=== PATIENT | male | born 1945 | race Caucasian/White ===

== ENCOUNTER 2017-07-25 18:41 | Emergency (ER) | payer OTHER ==
[~2017-07-25] VITALS: Ht 170.2 cm; Wt 60.9 kg
[~2017-07-25 18:41] MED LIST: ASPIRIN E.C.81 M1 PO; LOPRESSOR25 MG PO; LORAZEPAM0.5 MG PO; METOPROLOL SUCC25 MG PO; MOTRIN600 MG PO; OxyCODONE; PRAVACHOL40 MG PO; Senokot,Sennagen PO; Zocor PO; [UNRECOGNIZED DRUG - REMARK]
[2017-07-25] MEDS ORDERED: NORCO 5/3251 TABLET PO (20:51)
[2017-07-25 21:13] VITALS: BP 126/55
== END 2017-07-25 21:13 | disposition home or self-care (01) ==
LOC: EME 18:41 → RME 18:41
DX: S80.01XA Contusion of right knee, initial encounter (principal); M25.511 Pain in right shoulder; W01.198A Fall on same level from slipping, tripping and stumbling with subsequent striking against other object, initial encounter; E78.5 Hyperlipidemia, unspecified; I10 Essential (primary) hypertension; I25.2 Old myocardial infarction; Z79.82 Long term (current) use of aspirin; F17.200 Nicotine dependence, unspecified, uncomplicated
CPT/HCPCS: 73564; 99281; 99284